=== PATIENT | female | born 1940 | race Two or more races ===

== ENCOUNTER → 2017-07-03 | Outpatient (CLI) | payer MEDICARE, BC ==
--- NOTE | 2017-07-03 17:28 | RADRPT ---
PROCEDURE: Left knee radiographs. CLINICAL INDICATION: Left knee pain. TECHNIQUE: Three views. Weight bearing. Frontal, lateral, and patellar view. COMPARISON: No prior studies are available for comparison. FINDINGS: There is no fracture or dislocation. The soft tissues are normal. there are degenerative changes with osteophytes arising from all 3 joint compartment margins. There is medial joint compartment narrowing, subarticular sclerosis, and mild deformity. There is no lytic or blastic lesion. There is no radiopaque foreign body. IMPRESSION: 1. Moderate to severe degenerative changes of the left knee. 2. Otherwise unremarkable study. RPTAT: QQ .Roel Ugarte MD, MD Date Time Electronically viewed and signed by .Roel Ugarte MD, MD on 07/03/2017 17:28 .R/
--- NOTE | 2017-07-09 08:24 | HKNOTE ---
DATE OF SERVICE: 07/03/2017 MAIN COMPLAINT: Pain in the left knee. HISTORY OF MAIN COMPLAINT: Patient is a 76-year-old female who complains of pain in her left knee. She has seen me in the past with a complaint of pain in the right hip. The right hip is completely resolved now. Patient gets pain in both knees, but the left knee is worse than the right. Patient has polymyalgia rheumatica. She does not believe that her knee pain is related to the polymyalgia. When I saw her in 2006 for her hip, I sent her a course of physical therapy and within a few weeks she was totally free of her pain. Since then, she has frequently had weakness of both her legs from the polymyalgia. PRESENT COMPLAINTS: The left knee pain is aggravated by walking, weightbearing and stair climbing. She is not able to run. She used to walk 3 miles daily, now she cannot walk more than a quarter of a block without stopping. She gets pain every day affecting about 50 percent of the steps taken. She is not able to squat. She occasionally gets night pain, which is aggravated by straightening her leg out. She sleeps with a pillow under the knee. She has tried using Salonpas and Advil, which help "a little." She also has tried using [place] Dream. She does not have any back trouble. She occasionally gets numbness and tingling in her legs. The knee feels unstable perhaps once a week or so. She limps after walking 50 steps. "Both of my legs feel very heavy." She can clip her toenails. SPORTING ACTIVITIES: None. PRIOR CORTISONE INTAKE: Patient has been taken prednisone 4 mg a day for polymyalgia rheumatica since August 2014. OTHER JOINT PROBLEMS: None. PAST ORTHOPEDIC HISTORY: Previous orthopedic operations: Note above. ALCOHOL INTAKE: None. Patient also complains of pain in both her knees, but "it is manageable." PRIOR INJURIES TO HIPS AND KNEES: None. BLOOD TESTS FOR ARTHRITIS: None. 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 PAST MEDICAL HISTORY: See the written notes in the chart. Hypertension, glaucoma and polymyalgia. ALLERGIES: ERYTHROMYCIN AND ROCEPHIN. FAMILY HISTORY: Noncontributory. SYSTEMS REVIEW: Prone to constipation and has hemorrhoids; otherwise, entirely negative. HABITS: Patient smoked between 1967 and 2007 and again 2011 to 2015. 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 Eriberto Rojas for polymyalgia and rheumatoid arthritis. Dr. Boy John, [id number] [facility] [address], [place] [address]. PHYSICAL EXAMINATION: GENERAL: A very healthy-looking 76-year-old female. VITAL SIGNS: Height 5 feet. Weight 140 pounds. Blood pressure 120/60, temperature 98.2. HIPS: Both hips have full range of motion without pain. There is no tenderness anywhere around either hip. KNEES: Examination of her right knee: Flexion lacks 25 degrees. Extension is full. Tender over the medial joint line. 6+ crepitus of the knee, none of patella. Examination of the left knee: Varus alignment. Extension is full. Flexion lacks 25 degrees (painful). 6+ crepitus on the knee and the patella. IMAGING: Plain x-rays of the knee obtained today at the [facility] were reviewed (3 views). The alignment of the leg is varus. The medial compartment has bone- on-bone contact with almost virtually complete loss of the medial joint space, with [id number] contact. The patellofemoral joint is well aligned. Small osteophytes medially and laterally at the joint line level and also on the patella. There is subchondral sclerosis. DIAGNOSES: 1. 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 2. Similar problems with the knee but not to the same degree. DISCUSSION: Patient is advised that she will need to have a knee replacement sooner or later. Patient is completely opposed to any kind of medication, and especially cortisone. She declined a cortisone injection. We briefly discussed knee replacement surgery. Patient is given a prescription for physical therapy and she will see me again as necessary for further evaluation and treatment. Dictated By: Shamir Spencer MD /bj/hawa /Document#: [id number]
== END | disposition home or self-care (01) ==
LOC: HKI 13:40
DX: M25.562 Pain in left knee (principal)
CPT/HCPCS: 73562; G0463